=== PATIENT | female | born 1940 | race Caucasian/White ===

== ENCOUNTER 2016-03-30 11:43 | Inpatient (IN) | payer MEDICARE, BC ==
[2016-03-30] MEDS ORDERED: Propofol* 0 ML ONE (13:14)
[2016-03-30] MEDS ORDERED: Norepinephrine 16MCG/ML IVPRE* 4,000 MCG/250 ML BAG IV ONE (13:14)
[2016-03-30] MEDS ORDERED: Albuterol/Ipratropium NEB.SOL* Albuterol 2.5 MG/Ipratropium 0.5 MG 3 ML ONE (14:14)
--- NOTE | 2016-03-30 14:18 | RAD ---
Indication: Post intubation. Comparison: 1046 hours chest radiograph of the same date and [address] Technique: Upright AP 1405 hours Report: Elevated lung volumes. Patchy consolidation at the periphery of the LEFT lung base. Grossly clear pleural spaces. Endotracheal tube tip is 1 cm above the Vaishnavi and should be pulled back approximately 2 cm. Negative for cardiomegaly. Prominent central pulmonary vasculature with peripheral attenuation suggests potential pulmonary arterial hypertension. No evidence for pulmonary edema. IMPRESSION: 1. Endotracheal tube should be pulled back approximately 2 cm. 2. Consolidation at the LEFT lung base concerning for pneumonia. 3. Stigmata of chronic obstructive pulmonary disease and emphysema with probable pulmonary arterial hypertension.
[2016-03-30] MEDS: Albuterol/Ipratropium NEB.SOL* Albuterol 2.5 MG/Ipratropium 0.5 MG 3 ML INH SCH ×3 (14:57→23:08)
[2016-03-30] MEDS ORDERED: Albuterol/Ipratropium NEB.SOL* Albuterol 2.5 MG/Ipratropium 0.5 MG 3 ML INH SCH (15:00)
[2016-03-30] MEDS: Levofloxacin 500 MG IVPREMIX(* 500 MG/100 ML BAG IVPB SCH (15:17)
[2016-03-30] MEDS: Enoxaparin(*) 40 MG/0.4 ML SYR SUBCUT SCH (15:20)
[2016-03-30] MEDS: methylPREDNISolone SOD 40 MG* 1 ML VIAL IV SCH (15:20)
[2016-03-30 15:31] LABS: Hematocrit 43 % (35-47); Hemoglobin 13.6 g/dl (12.0-16.0); Mean Corpuscular HGB Conc 31 g/dl (31-36); Mean Corpuscular Hemoglobin 30 pg (27-31); Mean Corpuscular Volume 94 fL (80-97); Mean Platelet Volume 9 um3 (7.4-10.4); Red Blood Count 4.61 10^6/ul (4.0-5.4); Red Cell Distribution Width 14 % (10.5-15); White Blood Count 11.7 10^3/ul (3.5-10.8)
[2016-03-30 15:42] LABS: BUN/Creatinine Ratio 18.4 (8-20); Calcium 8.2 mg/dL (8.6-10.3); EGFR African American 82.1 (>60); EGFR Non-African American 63.8 (>60); Potassium 4.4 mmol/L (3.5-5.0)
[2016-03-30] MEDS: Dexmedetomidine* 50 ML IVPB SCH ×2 (19:55→22:59)
--- NOTE | 2016-03-30 21:19 | HP ---
ADMISSION HISTORY AND PHYSICAL: DATE OF ADMISSION: 03/30/16 REASON FOR ADMISSION: Respiratory failure. HISTORY OF PRESENT ILLNESS: This patient is a 75-year-old white female with a history of severe [employer], who was found unresponsive in bed this morning by her and brought to [facility]. The patient was unresponsive at presentation and was intubated. Relevant laboratory tests done at [facility] included a blood gas, which showed a PCO2 of 112 and a pH of 7.12. The patie nt was subsequently intubated and was transferred here for further management. The patient was addit ionally hypotensive at [facility] and was started on Levophed for blood pressure control. According t o the patient's , the patient had been experiencing increasing cough and sputum production an d increasing shortness of breath for the last 24 hours. OUTPATIENT MEDICATIONS: 1. Aspirin 325 mg daily. 2. Zetia 10 mg daily. 3. Albuterol 2 puffs every 4 hours. 4. Spiriva 18 mcg by inhalation daily. 5. Oxygen 2 L by nasal cannula continuous. 6. Omeprazole 20 mg daily. 7. Lovastatin 40 mg daily. 8. Propranolol sustained release 160 mg daily. 9. Nifedipine extended release 60 mg orally daily. 10. Advair 1 puff twice daily. DRUG ALLERGIES: Include VERAPAMIL, ATORVASTATIN, ERTAPENEM, PENICILLIN, MACROLIDE ANTIBIOTICS, CODE INE, and RAMIPRIL (type of reactions not documented). REVIEW OF SYSTEMS: Not obtainable. PHYSICAL EXAMINATION GENERAL: The patient arrived in the intensive care unit intubated, but was awake and able to respon d appropriately to verbal commands. HEENT: Pupils were reactive. Extraocular movements appeared full. There was no facial asymmetry. NECK: Supple and no jugular venous distention or masses. LUNGS: Auscultation of the lungs revealed inspiratory and expiratory wheezing, more prominent anter iorly. No crackles were appreciated. CARDIAC: Exam was unremarkable. ABDOMEN: No distention or tenderness. EXTREMITIES: Warm, not cyanotic and not edematous. NEUROLOGIC: The patient moved all extremities in response to verbal commands. ADMISSION LABORATORY DATA: Labs at [facility] showed a hemoglobin of 17, a w briseyda count of 14.7, a glucose of 190, a potassium of 5.2, serum bicarb of 37, and a lactic acid of 2 . BUN and creatinine were normal. Liver enzymes were normal and CPK and troponin were also normal. Urinalysis was positive for protein and INR was 1.1. Admission labs at this hospital are pending. Chest x-ray on admission here showed a localized infiltrate or mass at the left base laterally and n o other infiltrates. IMPRESSION: Exacerbation of chronic obstructive pulmonary disease with hypercapnic respiratory fail ure. Most likely source of the patient's inability to arouse from sleep was CO2 narcosis. There is no evidence for neurologic injury at this time. The chest x-ray abnormality either represents a loc alized infiltrate or a mass. MANAGEMENT PLAN: Management will consist of inhaled bronchodilators, a brief course of steroids, an d empiric antibiotic therapy with levofloxacin. Cultures of blood and sputum will be obtained prior to antibiotic administration. We will attempt to wean from mechanical ventilation as soon as feasi ble. The patient's is present at the bedside and is aware of the diagnosis and management plan. CRITICAL CARE TIME: 60 minutes. [id number]/[facility] #: [id number]
[2016-03-31] MEDS: Dexmedetomidine* 50 ML IVPB SCH ×5 (03:25→20:54)
[2016-03-31] MEDS: Albuterol/Ipratropium NEB.SOL* Albuterol 2.5 MG/Ipratropium 0.5 MG 3 ML INH SCH ×6 (04:18→21:44)
[2016-03-31 05:55] LABS: Hematocrit 41 % (35-47); Hemoglobin 13.2 g/dl (12.0-16.0); Mean Corpuscular HGB Conc 32 g/dl (31-36); Mean Corpuscular Hemoglobin 30 pg (27-31); Mean Corpuscular Volume 95 fL (80-97); Mean Platelet Volume 9 um3 (7.4-10.4); Red Blood Count 4.37 10^6/ul (4.0-5.4); Red Cell Distribution Width 13 % (10.5-15); White Blood Count 7.6 10^3/ul (3.5-10.8)
[2016-03-31 06:06] LABS: BUN/Creatinine Ratio 31.1 (8-20); Calcium 8.7 mg/dL (8.6-10.3); EGFR African American 98.9 (>60); EGFR Non-African American 76.9 (>60); Globulin 3.3 g/dL (2-4); Potassium 4.6 mmol/L (3.5-5.0); Total Bilirubin 0.3 mg/dL (0.2-1.0); Total Protein 6.3 g/dL (6.4-8.9)
[2016-03-31] MEDS: methylPREDNISolone SOD 40 MG* 1 ML VIAL IV SCH (08:23)
[2016-03-31] MEDS: Famotidine IV * 20 MG in NS 0.9% 100 ML* 100 ML IVPB SCH (08:24)
--- NOTE | 2016-03-31 09:30 | RAD ---
HISTORY: Orogastric tube placement COMPARISONS: March 30, 2016 VIEWS:1: Single frontal portable view of the chest at 9:06 AM. The patient is obliqued to the left. FINDINGS: LINES AND TUBES: An endotracheal tube is noted with the tip overlying the trachea between the clavicles and the sekou. A gastric tube is noted. The tip is in the left upper quadrant in a prepyloric position. CARDIOMEDIASTINAL SILHOUETTE: The cardiomediastinal silhouette is normal for portable technique. PLEURA: The costophrenic angles are sharp. No pleural abnormalities are noted. LUNG PARENCHYMA: There is hyper inflation. There is persistent patchy alveolar opacification of the left lung base ABDOMEN: The upper abdomen is clear. There is no subphrenic gas. BONES AND SOFT TISSUES: No bone or soft tissue abnormalities are noted. IMPRESSION: 1. LINES AND TUBES ABOVE. 2. COPD. 3. PERSISTENT LEFT BASILAR ATELECTASIS VERSUS CONSOLIDATION
[2016-03-31] MEDS ORDERED: Albuterol 2.5 MG/3 ML NEB.SOL* (0.083%) ONE (10:46)
[2016-03-31] MEDS ORDERED: Albuterol 2.5 MG/3 ML NEB.SOL* (0.083%) INH ONE (10:48)
[2016-03-31] MEDS: Enoxaparin(*) 40 MG/0.4 ML SYR SUBCUT SCH (14:52)
[2016-03-31] MEDS: Levofloxacin 500 MG IVPREMIX(* 500 MG/100 ML BAG IVPB SCH (15:24)
--- NOTE | 2016-03-31 16:05 | PN ---
Critical Care Services: Remains on ventilator - sedated with Precedex. Has episodes of respiratory distress on the ventilator. Vital Signs: Temp Pulse Resp BP SpO2 FiO2 97 F 88 14 115/58 91 40 Physical Exam: Gen:Somnolent Lungs: Occasional expiratory wheezes Extremities:No cyanosis or edema Fluid Balance (Past 24 Hours): I= O= Net Intake & Output 03/31/16 06:59 Intake Total 2213 Output Total 940 Balance +1273 Weight 185 lb Intake: IV Fluids 1982 LR 1850 NS (0.9%) 133 IVPB 120 NS (0.9%) 120 Medicated IV 110 CC - Dexmedetomidine/ 110 Precedex Output: Ocampo 940 Labs: 03/31/16 03/31/16 05:30 05:30 WBC 7.6 Hgb 13.2 Hct 41 Plt Count 152 Sodium 139 Potassium 4.6 Chloride 102 Carbon Dioxide 33 BUN 23 Creatinine 0.74 Glucose 112 Calcium 8.7 Total Bilirubin 0.30 AST 30 ALT 23 Alkaline Phosphatase 67 Total Protein 6.3 Albumin 3.0 Studies: CXR: Infiltrate left base. Nutrition: None Impression: End-stage lung diasease - i suspect weaning will be very difficult. Plan: Daily wean attempts.
--- NOTE | 2016-03-31 17:38 | RAD ---
HISTORY: Pneumonia COMPARISONS: March 31, 2016 at 9:12 AM VIEWS:1: Single frontal portable view of the chest at 4:50 PM FINDINGS: LINES AND TUBES: An endotracheal tube is noted with the tip overlying the trachea between the clavicles and the sekou. A gastric tube is noted. The tip is below the [id number] the current examination but is below the diaphragm. CARDIOMEDIASTINAL SILHOUETTE: The cardiomediastinal silhouette is normal for portable technique. PLEURA: The costophrenic angles are sharp. No pleural abnormalities are noted. LUNG PARENCHYMA: There is persistent patchy alveolar opacification of the left lower lung near the cardiophrenic angle. There is hyperinflation. ABDOMEN: The upper abdomen is clear. There is no subphrenic gas. BONES AND SOFT TISSUES: No bone or soft tissue abnormalities are noted. IMPRESSION: 1. LINES AND TUBES ABOVE. 2. PERSISTENT LEFT LOWER LUNG ATELECTASIS VERSUS CONSOLIDATION
[2016-03-31] MEDS ORDERED: Albuterol 2.5 MG/3 ML NEB.SOL* (0.083%) INH PRN (22:01)
[2016-04-01] MEDS: Dexmedetomidine* 50 ML IVPB SCH ×5 (00:06→21:11)
[2016-04-01] MEDS: Albuterol/Ipratropium NEB.SOL* Albuterol 2.5 MG/Ipratropium 0.5 MG 3 ML INH SCH ×6 (03:01→23:24)
[2016-04-01 07:18] LABS: Hematocrit 40 % (35-47); Hemoglobin 12.7 g/dl (12.0-16.0); Mean Corpuscular HGB Conc 32 g/dl (31-36); Mean Corpuscular Hemoglobin 30 pg (27-31); Mean Corpuscular Volume 95 fL (80-97); Mean Platelet Volume 8 um3 (7.4-10.4); Red Blood Count 4.17 10^6/ul (4.0-5.4); Red Cell Distribution Width 14 % (10.5-15); White Blood Count 6.7 10^3/ul (3.5-10.8)
[2016-04-01 07:38] LABS: BUN/Creatinine Ratio 35.3 (8-20); Calcium 8.6 mg/dL (8.6-10.3); EGFR African American 37.1 (>60); EGFR Non-African American 28.9 (>60); Potassium 5.6 mmol/L (3.5-5.0)
[2016-04-01] MEDS: Famotidine IV * 20 MG in NS 0.9% 100 ML* 100 ML IVPB SCH (08:29)
[2016-04-01] MEDS: methylPREDNISolone SOD 40 MG* 1 ML VIAL IV SCH (08:30)
[2016-04-01] MEDS: Enoxaparin(*) 40 MG/0.4 ML SYR SUBCUT SCH (14:40)
--- NOTE | 2016-04-01 14:56 | PN ---
Critical Care Services: Remains on ventilator - has periods of respiratory distress on the ventilator, and does not tolerate even brief periods of time off vent support (desaturates to below 80%). Vital Signs: Temp Pulse Resp BP SpO2 FiO2 97.8 F 70 16 117/49 94 40 Physical Exam: Gen:Somnolent (on Precedex) Lungs:scattered exp wheezes. No crackles Extremities:No cyanosis or edema. Fluid Balance (Past 24 Hours): 04/01/16 06:59 Intake Total 3731 Output Total 630 Balance +3101 Weight 180 lb Intake: IV Fluids 3239 LR 3016 NS (0.9%) 223 IVPB 114 NS (0.9%) 114 Medicated IV 378 CC - Dexmedetomidine/ 378 Precedex Output: Ocampo 630 NOTE: Urine output only 80cc overnight. Labs: 04/01/16 04/01/16 07:05 07:05 WBC 6.7 Hgb 12.7 Hct 40 Plt Count 154 Sodium 141 Potassium 5.6 Chloride 104 Carbon Dioxide 32 BUN 61 Creatinine 1.73 Glucose 118 Calcium 8.6 Magnesium 2.0 Total Creatine Kinase 55 Studies: None today Nutrition: None Impression: 1. Patient is ventilator-dependent, and the prognosis for return to spontaneous breathing is poor. 2. Increasing BUN and creatinine, despite a positive fluid balance - ? from sepsis or drugs. Plan: 1. I will speak with about the poor prognosis, and the likelihood of chronic ventilator dependence. 2. Will try 500 cc fluid bolus for decreasing urine output (doubt there will be a significant improvement). Will also review drugs and eliminate any nephrotoxic ones. Critical Care Time: 35 minutes
[2016-04-01] MEDS: Levofloxacin 250 MG IVPREMX(*) 250 MG/50 ML BAG IVPB SCH (15:15)
[2016-04-01] MEDS: NS 0.9% 1000 ML* 1,000 ML IV ONE ×2 (15:16→19:00)
[2016-04-01] MEDS ORDERED: NS 0.9% 1000 ML* 500 ML IV ONE (15:24)
--- NOTE | 2016-04-01 15:30 | PN ---
Progress Note - Progress Note Note: Spoke to about prognosis, and he has signed a DNR order. He understands his 's condition, and would want to withdraw ventilatory support in a few days if there is no clinical improvement.
[2016-04-01] MEDS: Chlorhexidine MOUTHWASH 0.12%* 15 ML UDC SWISH SPIT SCH (23:11)
[2016-04-02] MEDS: Dexmedetomidine* 50 ML IVPB SCH ×8 (00:24→22:05)
[2016-04-02] MEDS: Chlorhexidine MOUTHWASH 0.12%* 15 ML UDC SWISH SPIT SCH ×6 (03:08→22:06)
[2016-04-02] MEDS: Albuterol/Ipratropium NEB.SOL* Albuterol 2.5 MG/Ipratropium 0.5 MG 3 ML INH SCH ×5 (03:50→20:13)
[2016-04-02 06:01] LABS: Hematocrit 40 % (35-47); Hemoglobin 12.6 g/dl (12.0-16.0); Mean Corpuscular HGB Conc 32 g/dl (31-36); Mean Corpuscular Hemoglobin 30 pg (27-31); Mean Corpuscular Volume 94 fL (80-97); Mean Platelet Volume 8 um3 (7.4-10.4); Red Cell Distribution Width 14 % (10.5-15)
[2016-04-02 06:12] LABS: Albumin 2.6 g/dL (3.2-5.2); Calcium 8.7 mg/dL (8.6-10.3); EGFR African American 49.9 (>60); EGFR Non-African American 38.8 (>60); Potassium 5.2 mmol/L (3.5-5.0); Total Bilirubin 0.2 mg/dL (0.2-1.0); Total Protein 5.6 g/dL (6.4-8.9)
--- NOTE | 2016-04-02 08:13 | RAD ---
HISTORY: Pneumonia COMPARISONS: March 31, 2016 VIEWS:1: Single frontal portable view of the chest at 6:20 AM. The patient is obliqued to the left. FINDINGS: LINES AND TUBES: An endotracheal tube is noted. The tip is overlying the trachea to the clavicles and the sekou. A gastric tube is noted. The tip is below the [id number] the current examination but is below the diaphragm. CARDIOMEDIASTINAL SILHOUETTE: The cardiomediastinal silhouette is stable, accounting for obliquity. PLEURA: The costophrenic angles are sharp. No pleural abnormalities are noted. LUNG PARENCHYMA: Evaluation of the airspace disease of the left lower lobe is limited secondary to obliquity ABDOMEN: The upper abdomen is clear. There is no subphrenic gas. BONES AND SOFT TISSUES: No bone or soft tissue abnormalities are noted. IMPRESSION: 1. LIMITED STUDY. THE AIRSPACE DISEASE OF THE LEFT LOWER LOBE NOTED ON THE PREVIOUS EXAMINATION IS NOT WELL EVALUATED ON THE CURRENT EXAMINATION. 2. FINDINGS AND TUBES ABOVE
[2016-04-02] MEDS: methylPREDNISolone SOD 40 MG* 1 ML VIAL IV SCH (08:43)
[2016-04-02] MEDS: Famotidine IV * 20 MG in NS 0.9% 100 ML* 100 ML IVPB SCH (08:43)
[2016-04-02] MEDS: Morphine INJ* 2 MG/ML 1 ML CARPUJECT IV PRN (10:30)
[2016-04-02] MEDS: Morphine INJ* 2 MG/ML 1 ML CARPUJECT ONE ×2 (11:03→11:21)
[2016-04-02] MEDS: Enoxaparin(*) 40 MG/0.4 ML SYR SUBCUT SCH (14:38)
--- NOTE | 2016-04-02 15:09 | PN ---
Critical Care Services: Patient failed spontaneous breathing trial after 10 minutes. I spoke with the about the poor prognosis for removal of ventilatory support, and he has requested that patient be removed from ventilator and kept comfortable with opiates. Remainder of family to visit today, and will procedd with "comfort measures only" care tomorrow. Vital Signs: Temp Pulse Resp BP SpO2 FiO2 98.0 F 79 16 115/52 93 40 Physical Exam: Gen:Somnolent but arousable (on dexmedetomidine) Lungs: No crackles or wheezes Extremities:Warm. No cyanosis or edema. Fluid Balance (Past 24 Hours): 04/02/16 06:59 Intake Total 3898 Output Total 775 Balance +3123 Weight 193 lb Intake: IV Fluids 3474 LR 3223 NS (0.9%) 251 IVPB NS (0.9%) Medicated IV 324.7 CC - Dexmedetomidine/ 324.7 Precedex Oral 100 Output: Urine 100 Ocampo 675 Labs: 04/02/16 04/02/16 05:43 05:43 WBC 6.0 Hgb 12.6 Hct 40 Plt Count 153 Sodium 140 Potassium 5.2 Chloride 106 Carbon Dioxide 32 BUN 71 Creatinine 1.34 Glucose 130 Calcium 8.7 Total Bilirubin 0.20 AST 36 ALT 38 Alkaline Phosphatase 53 Total Protein 5.6 Albumin 2.6 Studies: CXR: No progression of ? left lower lobe infiltrate. Nutrition: None Impression: Patient has end-stage COPD. Plan: [place] "comfort measures only" care in AM tomorrow, as mentioned above.
[2016-04-02] MEDS: Levofloxacin 250 MG IVPREMX(*) 250 MG/50 ML BAG IVPB SCH (15:15)
[2016-04-03] MEDS: Albuterol/Ipratropium NEB.SOL* Albuterol 2.5 MG/Ipratropium 0.5 MG 3 ML INH SCH ×3 (00:32→07:45)
[2016-04-03] MEDS: Dexmedetomidine* 50 ML IVPB SCH ×4 (01:30→10:02)
[2016-04-03] MEDS: Chlorhexidine MOUTHWASH 0.12%* 15 ML UDC SWISH SPIT SCH ×3 (02:30→10:20)
[2016-04-03] MEDS: Morphine INJ* 2 MG/ML 1 ML CARPUJECT IV PRN ×2 (03:43→10:20)
[2016-04-03] MEDS: Famotidine IV * 20 MG in NS 0.9% 100 ML* 100 ML IVPB SCH (10:20)
[2016-04-03] MEDS: methylPREDNISolone SOD 40 MG* 1 ML VIAL IV SCH (10:20)
[2016-04-03] MEDS ORDERED: NS 0.9% 1000 ML* 1,000 ML IV SCH (10:45)
[2016-04-03] MEDS ORDERED: Morphine PCA ADULT* 5 MG/ML 30 ML PCA SCH (11:00)
--- NOTE | 2016-04-03 12:09 | PN ---
Progress Note - Progress Note Note: CRITICAL CARE MEDICINE Date: 04/03/16 Time: 1000 SUBJECTIVE: Patient seen and examined. at bedside. PHYSICAL EXAM: Vital Signs: Reviewed. Neurologic: awake, follows simple commands but on morphine now too. HEENT: pupils equal. Sclera anicteric. Trachea midline. Cardiovascular: S1 S2 Respiratory: distant, no weeze nor rales. dismal compliance on vent. changed to cpap 28/11 Abdomen: Soft, nt. No r/g/r. Extremities: Warm. LABS: Reviewed. IMAGING: Reviewed. MEDICATIONS: Reviewed. ASSESSMENT: 75 F Acute on chronic hypercarbic and hypoxic respiratory failure End stage COPD Tx for pna PLAN: agrees with plans for liberation from vent today. Explained her poor ventilation and compliance. Will liberate on morphine gtt to 15L salter and re- assess her ventilation, but if only failing will need more morphine. Do not see benefit in NIV at this time neither. Ensure comfort but can utilize passive O2 for now as well. low dose dex. likely to come off steroids, abx etc and comfort alone. Supportive and preventative care as ordered. SUP: ppi VTE prophylaxis: lovenox currently Ocampo catheter given critical illness Disposition: ICU Code Status: DNR Critical Care Time: 35min Jocy Patton DO
[2016-04-03 14:16] VITALS: BP 126/48
--- NOTE | 2016-04-03 16:00 | DS ---
CRITICAL CARE MEDICINE DISCHARGE SUMMARY ADMISSION DATE: 03/30/2016 ICU ADMISSION DATE: 03/30/2016 ICU DISCHARGE DATE: 04/03/2016 REFERRING PHYSICIAN: [facility] DIAGNOSIS: 1. Acute on chronic hypoxic and hypercarbic respiratory failure. 2. Pneumonia. 3. Chronic obstructive pulmonary disease. MEDICATIONS AT DISCHARGE: None. HOSPITAL COURSE: 75 year old female transferred from [facility] after being found unresponsive with acute chronic obstructive pulmonary disease exaccerbation and acute on chronic hypoxic and hypercarbic respiratory failure requiring intubation and brief use of levophed. Transferred to [facility] without much ability to reverese disease process with poor lung compliance. Given supportive therapies but not improving. opted for extubation and comfort care. Patient liberated from ventilation on low dose morphine drip and passed soon after with at the bedside. DISPOSITION: . Jocy Patton DO
== END 2016-04-03 15:28 | disposition expired | DRG 208 ==
LOC: ICU 13:10
PROVIDERS: ADMIT Internal Medicine Critical Care Medicine; ATTEND Internal Medicine Critical Care Medicine
PROC: 5A1945Z Respiratory Ventilation, 24-96 Consecutive Hours (ICD-10-PCS; principal; 2016-03-30)
DX: J96.22 Acute and chronic respiratory failure with hypercapnia (principal); J18.9 Pneumonia, unspecified organism; J44.1 Chronic obstructive pulmonary disease with (acute) exacerbation; J96.21 Acute and chronic respiratory failure with hypoxia; Z66 Do not resuscitate; Z88.1 Allergy status to other antibiotic agents; Z88.8 Allergy status to other drugs, medicaments and biological substances; Z88.0 Allergy status to penicillin; Z88.5 Allergy status to narcotic agent
CPT/HCPCS: 36415; 71010; 80048; 80053; 82550; 83735; 85027; 85610; 87070; 87077; 87186; 87205; 87641; 93005; 94002; 94003; 94640; 94760; A9270-GY; J1650; J1956; J2270; J2704; J2920